=== PATIENT | male | born 1975 | race Caucasian/White ===

== ENCOUNTER 2024-04-07 10:12 | Emergency (ER) | payer OTHER, SELFPAY ==
[2024-04-07 10:20] VITALS: BP 136/86; PULSE 79; RESP 16; TEMP 36.1; O2SAT 100
[2024-04-07 10:26] VITALS: BP 136/86; PULSE 79; RESP 16; TEMP 36.1; O2SAT 100
--- NOTE | 2024-04-07 10:47 | ED.GENADULT ---
HPI - General Adult General Chief complaint: Ear Stated complaint: Ears / can't hear Source: patient Mode of arrival: ambulatory Limitations: no limitations History of Present Illness HPI narrative: Patient presents for evaluation of bilateral ear pain for the last 3 weeks. He has been sweating quite a bit doing physical labor. He also has a swimming pool. He now feels like his left ear is swollen shut. He has chronic hearing loss but states his current symptoms in the left ear are worse than his baseline. He has experienced some dizziness. No fever, chills, nausea, vomiting or drainage from the ear. He smokes 1 pack per day. Related Data Allergies Allergy/AdvReac Type Severity Reaction Status Date / Time No Known Allergies Allergy Unverified 04/07/24 10:20 Review of Systems Review of Systems: CONSTITUTIONAL: Denies fever, chills, or sweats. EYES: Denies visual changes, redness, or discharge. ENT: Reports bilateral ear pain. Reports acute on chronic hearing loss. Denies sore throat. CARDIOVASCULAR: Denies chest pain, palpitations, or edema. RESPIRATORY: Denies cough or dyspnea. GASTROINTESTINAL: Denies abdominal pain, nausea, vomiting, or diarrhea. GENITOURINARY: Denies dysuria or hematuria. SKIN: Denies rash or itching. MUSCULOSKELETAL: Denies back pain, joint pain, or myalgia. NEUROLOGIC: Reports dizziness. Denies headache, numbness, or weakness. PSYCHIATRIC: Denies anxiety or depression. FOR[facility]LY [facility] Past Medical History Medical History No pertinent past medical history Surgical History Surgical History No pertinent past surgical history Family History Family History Mother Family history non-contributory Social History Social History Smoking packs per day: 1 Smoking cigarettes per day: 20.0 Smoking status: Current every day smoker Tobacco type: cigarettes and e-cigarettes/vaping Alcohol intake: current Substance use: current Substance use type: marijuana Living arrangements: alone Gender identity (if verbalized by the patient): Male Spiritual care concerns: No Exam Narrative: GENERAL: Well-appearing, well-nourished, and in no acute distress. HEAD: Normocephalic, atraumatic. EYES: PERRLA and EOMI. ENT: Nares clear, no rhinorrhea or epistaxis. Mucous membranes moist. Oropharynx without tonsillar hypertrophy exudate or other lesions. Right tympanic membrane is erythematous and bulging. I am unable to visualize the left tympanic membrane due to swelling of the left ear canal. NECK: Supple. No adenopathy or masses. No carotid bruits or JVD CHEST: Clear to auscultation. No respiratory distress. No wheezes rales or rhonchi HEART: Regular rate and rhythm. No murmur heard. Normal peripheral pulses. ABDOMEN: Soft, nontender, nondistended, normal active bowel sounds. EXTREMITIES: Normal range of motion. No edema. SKIN: Warm, dry, no rash. NEURO: No focal deficits. Alert and oriented x3. PSYCH: Normal mood and affect. Course Course Emergency Course: This is a 49-year-old male who presented for evaluation of bilateral ear pain. He has evidence of otitis media on the right and otitis externa on the left. Will treat with Augmentin ofloxacin. Increase hydration. [id number] agents for symptom management. Advised on smoking cessation. Follow up with primary provider. Go to the ER for worsening symptoms. Patient in agreement with paln of care. Level of Care: Express Care Visit Vital Signs Vital signs: Vital Signs Temperature 36.1 C L 04/07/24 10:20 Pulse Rate 79 04/07/24 10:20 Respiratory Rate 16 04/07/24 10:20 Blood Pressure 136/86 04/07/24 10:20 Pulse Oximetry 100 04/07/24 10:20 Oxygen Delivery Room Air 03/23
== END 2024-04-07 10:54 | disposition home or self-care (01) ==
PROVIDERS: Emergency Provider Nurse Practitioner
DX: H66.91 Otitis media, unspecified, right ear (principal); H60.92 Unspecified otitis externa, left ear; F17.210 Nicotine dependence, cigarettes, uncomplicated; F17.290 Nicotine dependence, other tobacco product, uncomplicated; F12.90 Cannabis use, unspecified, uncomplicated
CPT/HCPCS: 99203; G0463